=== PATIENT | male | born 1985 | race Two or more races ===

== ENCOUNTER 2020-02-09 06:23 | Outpatient (CLI) | payer OTHER | END 2020-02-09 06:27 | disposition home or self-care (01) | LOC: LAB 06:23 | PROVIDERS: ATTEND Internal Medicine | DX: D64.89 Other specified anemias (principal); E66.3 Overweight; Z87.891 Personal history of nicotine dependence; R07.1 Chest pain on breathing; E78.49 Other hyperlipidemia; N39.0 Urinary tract infection, site not specified; R10.84 Generalized abdominal pain; E03.8 Other specified hypothyroidism; E11.9 Type 2 diabetes mellitus without complications ==

== ENCOUNTER 2024-02-25 07:28 | Outpatient (CLI) | payer OTHER ==
[2024-02-25 08:35] LABS: PH,URINE 6.5 (5.0-8.0); URINE APPEARANCE Clear; URINE BILIRRUBIN Negative (NEGATIVE); URINE BLOOD Negative; URINE COLOR Yellow; URINE GLUCOSE Negative (NEGATIVE); URINE KETONE Negative (NEGATIVE); URINE LEUKOCYTE Negative; URINE NITRATE Negative; URINE PROTEIN Negative (NEGATIVE); URINE UROBILINOGEN 0.2 E.U./dl
[2024-02-25 08:38] LABS: INR 0.94; PARTIAL THROMBOPLASTIN TIME 27.9 SECONDS (22.0-34.0); PROTHROMBIN TIME 10.3 SECONDS (9.0-11.5)
[2024-02-25 08:43] LABS: HEMATOCRIT 41.8 % (39.0-48.0); HEMOGLOBIN 13.9 g/dL (13-16.00); MEAN CORPUSCULAR HEMOGLOBIN 28.6 pg (27.00-32.0); MEAN CORPUSCULAR HGB CONC 33.3 g/dl (32.0-36.0); PLATELET COUNT 304 K/uL (150-450); RED BLOOD COUNT 4.86 M/uL (4.00-6.00); RED CELL DISTRIBUTION WIDTH 14.1 % (11.5-14.5); URINE BACTERIA 4.8 uL (0.0-1933)
[2024-02-25 09:04] LABS: URINE EPITHELIAL CELLS 0.3 uL (0.0-38.8); URINE RBC 0.5 uL (0.0-20.8); URINE WBC 1.2 uL (0.0-23.2)
[2024-02-25 09:59] LABS: ALBUMIN 3.6 gm/dL (3.4-5.0); BILIRUBIN TOTAL 0.35 mg/dL (0.3-1.2); CALCIUM 9.2 mg/dL (8.5-10.1); CREATININE SERUM 0.8 mg/dL (0.70-1.30); GFR 107.62; POTASSIUM 4.74 mEq/L (3.5-5.1); PROSTATIC SPECIFIC ANTIGEN 0.484 NG/ML (0.010-4.00); TOTAL PROTEIN 7.6 gm/dL (6.4-8.2); TSH 2.09 uIU/mL (0.358-3.74)
[2024-02-25 10:13] LABS: CHOL HDL RATIO 6.2 (0-5.0)
== END 2024-02-25 07:29 | disposition home or self-care (01) ==
LOC: LAB 07:28
PROVIDERS: ATTEND Internal Medicine
DX: J06.9 Acute upper respiratory infection, unspecified (principal); N39.0 Urinary tract infection, site not specified; E88.819 Insulin resistance, unspecified; R31.0 Gross hematuria; K92.0 Hematemesis; E03.8 Other specified hypothyroidism; E11.00 Type 2 diabetes mellitus with hyperosmolarity without nonketotic hyperglycemic-hyperosmolar coma (NKHHC)

== ENCOUNTER → 2024-02-26 10:50 | Outpatient (CLI) | payer OTHER ==
[2024-02-26 11:37] LABS: ob NEGATIVE (NEGATIVE)
== END | disposition home or self-care (01) ==
LOC: LAB 10:50
PROVIDERS: ATTEND Internal Medicine
DX: J06.9 Acute upper respiratory infection, unspecified (principal); K92.0 Hematemesis; N39.0 Urinary tract infection, site not specified; E88.1 Lipodystrophy, not elsewhere classified; R31.0 Gross hematuria; E11.00 Type 2 diabetes mellitus with hyperosmolarity without nonketotic hyperglycemic-hyperosmolar coma (NKHHC); E03.8 Other specified hypothyroidism

== ENCOUNTER 2024-05-18 11:41 | Outpatient (CLI) | payer OTHER | END 2024-05-18 15:24 | disposition home or self-care (01) | LOC: TOM 11:41 | PROVIDERS: ATTEND Specialist | DX: K43.9 Ventral hernia without obstruction or gangrene (principal) ==